=== PATIENT | female | born 1990 | race African-American/Black ===

== ENCOUNTER 2017-06-21 10:32 | Emergency (ER) | payer MEDICAID ==
[~2017-06-21] VITALS: Ht 154.9 cm; Wt 58.5 kg
[~2017-06-21 10:32] MED LIST: NKM; PRENATABS FA T1 EACH PO; REGLAN10 MG ORAL
[2017-06-21 11:14] LABS: BASOPHILS % (AUTO) 1.1 % (0.0-2.0); EOSINOPHILS % (AUTO) 3.4 % (0.0-3.0); LYMPHOCYTES % (AUTO) 41.4 % (20.0-45.0); MEAN CORPUSCULAR HEMOGLOBIN 29.4 PG (27.0-31.0); MEAN CORPUSCULAR VOLUME 86 FL (80-99); MEAN PLATELET VOLUME 5.8 FL (6.5-10.1); MONOCYTES % (AUTO) 12.3 % (1.0-10.0); NEUTROPHILS % (AUTO) 41.8 % (45.0-75.0); PLATELET COUNT 315 K/UL (150-450); RED BLOOD COUNT 4.51 M/UL (4.20-5.40); RED CELL DISTRIBUTION WIDTH 13.1 % (11.6-14.8); WHITE BLOOD COUNT 4.7 K/UL (4.8-10.8)
[2017-06-21 11:15] LABS: APPEARANCE,URINE CLEAR; KETONES,URINE NEGATIVE (NEGATIVE); LEUKOCYTE ESTERASE ,URINE NEGATIVE (NEGATIVE); NITRITE,URINE NEGATIVE (NEGATIVE); PH,URINE 7 (4.5-8.0); PROTEIN,URINE NEGATIVE (NEGATIVE); UROBILINOGEN,URINE NORMAL MG/DL (0.0-1.0)
[2017-06-21] MEDS ORDERED: Morphine Sulfate 4mg/ml Inj IVP ONE (11:15)
[2017-06-21 11:35] LABS: ALANINE AMINOTRANSFERASE 17 U/L (12-78); ALBUMIN/GLOBULIN RATIO 1.3 (1.0-2.7); ANION GAP 5 mmol/L (5-15); ASPARTATE AMINO TRANSFERASE 14 U/L (15-37); CALCIUM 8.9 MG/DL (8.5-10.1); CARBON DIOXIDE 28 MMOL/L (21-32); CHLORIDE 103 MMOL/L (98-107); CREATININE 0.7 MG/DL (0.55-1.30); GLOMERULAR FILTRATION RATE > 60 mL/min (>60); LIPASE 139 U/L (73-393); POTASSIUM 3.7 MMOL/L (3.5-5.1); SODIUM 136 MMOL/L (136-145); TOTAL PROTEIN 7.2 G/DL (6.4-8.2)
[2017-06-21] MEDS ORDERED: DiphenhydrAMINE 50mg/ml Inj ONE (11:35)
[2017-06-21] MEDS ORDERED: DiphenhydrAMINE 50mg/ml Inj IVP ONE (11:45)
[2017-06-21] MEDS ORDERED: ACETAMINOPHEN-1 EAC1 ORAL (12:53)
[2017-06-21] MEDS ORDERED: PRENATABS FA T1 EACH PO (12:53)
[2017-06-21] MEDS ORDERED: ZOFRAN ODT4 MG ORAL (12:53)
[2017-06-21 13:29] VITALS: BP 110/63
--- NOTE | 2017-06-21 13:45 | Diagnostic Imaging Report ---
Indication: Abdominal pain, positive test, right-sided pelvic pain, history of 2 ectopic pregnancies Technique: Transabdominal and transvaginal images Comparison: 07/31/2016 Findings: Uterus is retroverted and retroflexed. Images 7.4 cm length by 4.9 cm AP. Within the endometrium, there is a small fluid collection with an echogenic rim, probably but not definitively the gestational sac. There is questionably a tiny pole. [place]-rump length and sac diameter are both too small to calculate an estimated gestational age. No heart activity demonstrated. No yolk sac. No myometrial abnormality. Right ovary measures 3.1 cm in length. Left ovary measures 3.4 cm in length. Prominent veins are seen in the left adnexal region. No adnexal mass demonstrated. Free fluid is seen in the cul-de-sac. Impression: Small endometrial fluid collection, likely but not definitively a gestational sac. No heart activity demonstrated. Ectopic therefore not completely excludable. Differential considerations include very early , nonviable , pseudo-gestational sac of ectopic . Recommend correlation with serial beta hCGs, followup sonography is indicated Free cul-de-sac fluid, likely physiologic No adnexal mass
--- NOTE | 2017-06-21 14:44 | Emergency Room Report ---
History of Present Illness General Chief Complaint: Complications Source: Patient Present Illness HPI 27-year-old female presents to ED complaining of abdominal pain for the last 3 days. Patient states she is approximately 5 weeks . Has not yet received care. States she is concerned she's had 2 prior ectopic pregnancies. Pain is 7/10, sharp, nonradiating. Denies any vaginal bleeding. Denies any nausea or vomiting. No other aggravating relieving factors. Denies any other associated symptoms Allergies: Coded Allergies: No Known Allergies (Unverified , 07/31/16) Patient History Past Medical History: none Past Surgical History: none Pertinent Family History: none Social History: Denies: smoking, alcohol use, drug use Last Menstrual Period: 5 weeks ago Now: Yes : 7 Para: 1 Immunizations: UTD Reviewed Nursing Documentation: PMH: Agreed, PSxH: Agreed Nursing Documentation-PMH Past Medical History: No History, Except For Hx Cardiac Problems: No - ectopic Review of Systems All Other Systems: negative except mentioned in HPI Physical Exam Vital Signs Date Time Temp Pulse Resp B/P (MAP) Pulse Ox O2 Delivery O2 Flow Rate FiO2 06/21/17 10:39 98.4 98 16 117/70 99 Room Air Sp02 EP Interpretation: reviewed, normal General Appearance: no apparent distress, alert, GCS 15, non-toxic Head: normocephalic, atraumatic Eyes: bilateral eye normal inspection, bilateral eye PERRL ENT: hearing grossly normal, normal pharynx, no angioedema, normal voice Neck: full range of motion, supple/symm/no masses Respiratory: chest non-tender, lungs clear, normal breath sounds, speaking full sentences Cardiovascular #1: regular rate, rhythm, no edema Cardiovascular #2: 2+ carotid (R), 2+ carotid (L), 2+ radial (R), 2+ radial (L) , 2+ dorsalis pedis (R), 2+ dorsalis pedis (L) Gastrointestinal: normal bowel sounds, soft, non-distended, no guarding, no rebound, tenderness Rectal: deferred Genitourinary: normal inspection, no CVA tenderness Musculoskeletal: back normal, gait/station normal, normal range of motion, non- tender Neurologic: alert, oriented x3, responsive, motor strength/tone normal, sensory intact, speech normal Psychiatric: judgement/insight normal, memory normal, mood/affect normal, no suicidal/homicidal ideation Reflexes: 3+ bicep (R), 3+ bicep (L), 3+ tricep (R), 3+ tricep (L), 3+ knee (R) , 3+ knee (L) Skin: normal color, no rash, warm/dry, well hydrated Lymphatic: no adenopathy Medical Decision Making Diagnostic Impression: Primary Impression: Threatened ER Course Hospital Course 27-year-old female presents to ED complaining of lower abdominal pain with N/V. + Differential diagnoses include: gastrits, gastroenterits, ectopic , ovarian torsion/cyst, UTI Clinical course Patient placed on stretcher in ED. After initial history and physical I ordered labs, IV fluids and Zofran and pain meds, ultrasound. Labs-no leukocytosis, electrolytes okay, beta hCG greater than 3000, UA unremarkable Pelvic ultrasound- ? pole, no HR detected. no adenxal tenderness I discussed findings with patient. Recommended serial sonogram and followup with [employer] Diagnosis - threatened Stable and discharged to home with Rx tylenol #3 and vitamins. Followup with PMD/[employer]. Return to ED if symptoms recur or worsen Labs Test 06/21/17 11:00 White Blood Count 4.7 K/UL (4.8-10.8) Red Blood Count 4.51 M/UL (4.20-5.40) Hemoglobin 13.2 G/DL (12.0-16.0) Hematocrit 39.0 % (37.0-47.0) Mean Corpuscular Volume 86 FL (80-99) Mean Corpuscular Hemoglobin 29.4 PG (27.0-31.0) Mean Corpuscular Hemoglobin Concent 34.0 G/DL (32.0-36.0) Red Cell Distribution Width 13.1 % (11.6-14.8) Platelet Count 315 K/UL (150-450) Mean Platelet Volume 5.8 FL (6.5-10.1) Neutrophils (%) (Auto) 41.8 % (45.0-75.0) Lymphocytes (%) (Auto) 41.4 % (20.0-45.0) Monocytes (%) (Auto) 12.3 % (1.0-10.0) Eosinophils (%) (Auto) 3.4 % (0.0-3.0) Basophils (%) (Auto) 1.1 % (0.0-2.0) Urine Color Pale yellow Urine Appearance Clear Urine pH 7 (4.5-8.0) Urine Specific [place] 1.010 (1.005-1.035) Urine Protein Negative (NEGATIVE) Urine Glucose (UA) Negative (NEGATIVE) Urine Ketones Negative (NEGATIVE) Urine Occult Blood Negative (NEGATIVE) Urine Nitrite Negative (NEGATIVE) Urine Bilirubin Negative (NEGATIVE) Urine Urobilinogen Normal MG/DL (0.0-1.0) Urine Leukocyte Esterase Negative (NEGATIVE) Urine HCG, Qualitative Positive Sodium Level 136 MMOL/L (136-145) Potassium Level 3.7 MMOL/L (3.5-5.1) Chloride Level 103 MMOL/L (98-107) Carbon Dioxide Level 28 MMOL/L (21-32) Anion Gap 5 mmol/L (5-15) Blood Urea Nitrogen 6 mg/dL (7-18) Creatinine 0.7 MG/DL (0.55-1.30) Estimat Glomerular Filtration Rate > 60 mL/min (>60) Glucose Level 94 MG/DL (74-106) Calcium Level 8.9 MG/DL (8.5-10.1) Total Bilirubin 0.7 MG/DL (0.2-1.0) Aspartate Amino Transf (AST/SGOT) 14 U/L (15-37) Alanine Aminotransferase (ALT/SGPT) 17 U/L (12-78) Alkaline Phosphatase 34 U/L (46-116) Total Protein 7.2 G/DL (6.4-8.2) Albumin 4.0 G/DL (3.4-5.0) Globulin 3.2 g/dL Albumin/Globulin Ratio 1.3 (1.0-2.7) Lipase 139 U/L (73-393) Human Chorionic Gonadotropin, Quant 3052 mIU/mL (1-6) CT/MRI/US Diagnostic Results CT/MRI/US Diagnostic Results : Imaging Test Ordered: OB US Impression small endometrial fluid collection. ? pole. no HR detected. Last Vital Signs Date Time Temp Pulse Resp B/P (MAP) Pulse Ox O2 Delivery O2 Flow Rate FiO2 06/21/17 13:29 98.4 69 16 110/63 100 Room Air Status: improved Disposition: HOME, SELF-CARE Condition: Stable Scripts Ondansetron Odt* (ZOFRAN ODT*) 4 Mg Tab.rapdis 4 MG ORAL Q6H Y for Nausea & Vomiting, #30 TAB 0 Refills Prov: NARGIS WILKINSON M.D. 06/21/17 Acetaminophen With Codeine (T#3) (TYLENOL #3 TAB*) Y Tab 1 TAB ORAL Q8H Y for For Pain, #20 TAB Prov: NARGIS WILKINSON M.D. 06/21/17 Vit No.78/Iron/Fa (PRENATABS FA TABLET) 1 Each Tablet 1 EACH PO DAILY for 30 Days, #30 TAB Prov: NARGIS WILKINSON M.D. 06/21/17 Referrals: NOT CHOSEN IPA/,REFERRING Patient Instructions: Threatened Miscarriage NARGIS WILKINSON M.D. Jun 21, 2017 14:44
== END 2017-06-21 13:34 | disposition home or self-care (01) ==
LOC: EMR 11:47
DX: O20.0 Threatened abortion (principal); Z3A.01 Less than 8 weeks gestation of pregnancy
CPT/HCPCS: 36415; 76801; 76830; 80053; 81003; 81025; 83690; 84702; 85025; 96361; 96374; 96375; 99284; J1200; J2270

== ENCOUNTER 2017-11-14 17:37 | Emergency (ER) | payer MEDICAID ==
[~2017-11-14] VITALS: Ht 154.9 cm; Wt 68.0 kg
[~2017-11-14 17:37] MED LIST changes: +ACETAMINOPHEN-1 EAC1 ORAL; +ZOFRAN ODT4 MG ORAL
--- NOTE | 2017-11-14 18:11 | Emergency Room Report ---
History of Present Illness General Chief Complaint: Upper Respiratory Illness Source: Patient Present Illness HPI 27-year-old female presents to the emergency department complaining of cough, rib cage pain exacerbated upon coughing, 7 out of 10 in severity abdominal pain in addition to decreased movement. Patient reports that she is 26 weeks . She has had history of 2 stillborns. And one normal vaginal delivery. Patient denies vaginal discharge, bleeding or contractions. Patient states that typically her baby is very active however today she only thinks she felt movement one time this morning which is not normal for her. Patient denies fevers or chills she reports her coughing sensation has been persistent and lasting 2-3 days. Reports history of asthma the child which she believes she grew out of. Denies CP, Palpitations, LOC, AMS, dizziness, Changes in Vision , Sensation, paresthesias, or a sudden severe headache. Allergies: Coded Allergies: No Known Allergies (Unverified , 07/31/16) Patient History Past Medical History: see triage record Past Surgical History: none Pertinent Family History: none Now: Yes - 26 weeks : 7 Para: 1 Reviewed Nursing Documentation: PMH: Agreed; PSxH: Agreed Nursing Documentation-PMH Hx Cardiac Problems: No - Two ectopic pregnancies, 1 still- Hx Asthma: Yes Review of Systems All Other Systems: negative except mentioned in HPI Physical Exam Vital Signs Date Time Temp Pulse Resp B/P (MAP) Pulse Ox O2 Delivery O2 Flow Rate FiO2 11/14/17 17:44 97.7 97 18 118/55 97 Room Air 97.7 Sp02 EP Interpretation: reviewed, normal General Appearance: no apparent distress, alert, GCS 15, non-toxic Head: normocephalic, atraumatic ENT: hearing grossly normal, normal voice Neck: full range of motion Respiratory: lungs clear, normal breath sounds, no rhonchi, no respiratory distress, no accessory muscle use, no wheezing, speaking full sentences, other - TTP to the anterior chest and lateral ribcage. Cardiovascular #1: regular rate, rhythm, no edema Gastrointestinal: normal bowel sounds, non tender, soft, other - pt. is Gravid. Some tenderness to the epigastric area no appreciable tenderness in the lower portions of the abdomen. Rectal: deferred Genitourinary: deferred Musculoskeletal: back normal, gait/station normal, normal range of motion, non- tender Neurologic: alert, oriented x3, responsive, motor strength/tone normal, sensory intact, normal gait, speech normal, grossly normal Psychiatric: judgement/insight normal Skin: normal color, no rash, warm/dry, well hydrated Medical Decision Making PA Attestation Dr. aiken is my supervising Physician whom patient management has been discussed with. Diagnostic Impression: Primary Impression: Upper respiratory symptom Additional Impressions: Threatened Decreased movement during Qualified Codes: O36.8190 - Decreased movements, unspecified trimester, not applicable or unspecified ER Course 27-year-old female presents to the emergency department complaining of cough, rib cage pain exacerbated upon coughing, 7 out of 10 in severity abdominal pain in addition to decreased movement. Patient reports that she is 26 weeks . She has had history of 2 stillborns. And one normal vaginal delivery. Patient denies vaginal discharge, bleeding or contractions. Patient states that typically her baby is very active however today she only thinks she felt movement one time this morning which is not normal for her. Patient denies fevers or chills she reports her coughing sensation has been persistent and lasting 2-3 days. Reports history of asthma the child which she believes she grew out of. Denies CP, Palpitations, LOC, AMS, dizziness, Changes in Vision , Sensation, paresthesias, or a sudden severe headache. 27-year-old female presents to the emergency department complaining of cough, rib cage pain exacerbated upon coughing, 7 out of 10 in severity abdominal pain in addition to decreased movement. Patient reports that she is 26 weeks . She has had history of 2 stillborns. And one normal vaginal delivery. Patient denies vaginal discharge, bleeding or contractions. Patient states that typically her baby is very active however today she only thinks she felt movement one time this morning which is not normal for her. Patient denies fevers or chills she reports her coughing sensation has been persistent and lasting 2-3 days. Reports history of asthma the child which she believes she grew out of. Denies CP, Palpitations, LOC, AMS, dizziness, Changes in Vision , Sensation, paresthesias, or a sudden severe headache. Ddx considered but are not limited to threatened , demise, gastritis, URI, impending delivery just to name a few Vital signs: are WNL, pt. is afebrile H&PE are most consistent with Lung sounds are clear bilaterally some tenderness to the epigastric area no appreciable tenderness in the lower portions of the abdomen. ED INTERVENTIONS: -Discussed with patient that ultimately she will need to be transferred to an L& D hospital and have FST monitoring performed. Discussed with patient that we would facilitate transport via ambulance. After discussion with her and her boyfriend they decided that they would take personal transportation over to appropriate hospital. Pt. did not want to have further evaluation of her symptoms here as she did not want to delay having the monitoring performed. Pt. states she will have her URI symptoms evaluated at alternate facility as well. Discussed with patient and risks of personal transport and that she would need to leave AMA. DISPOSITION: - At this time the patient is requesting to leave AGAINST MEDICAL ADVICE and decline further evaluation and Transfer to L&D Hospital. I believe that this patient has the capacity to make decisions on Her own. I discussed with the patient the risks of leaving AMA. Some of these risks include delay in diagnosis and treatment, Impending delivery, as well as worsening of symptoms, organ damage, and permanent disability or even . After discussing these risks with the patient. She continues to express Her want to leave AGAINST MEDICAL ADVICE. I encouraged the patient to return at any time, and that she will be welcome here in the emergency department to continue medical management and appropriate transfer/ambulance transport. Last Vital Signs Date Time Temp Pulse Resp B/P (MAP) Pulse Ox O2 Delivery O2 Flow Rate FiO2 11/14/17 17:44 97.7 97 18 118/55 97 Room Air 97.7 Disposition: AGAINST MEDICAL ADVICE Condition: Unknown Patient Instructions: Monitoring Overview, Form - Movement Counts Additional Instructions: Return sooner to ED if new symptoms occur, or current symptoms become worse. Pt. to Leave AMA and provide her own personal transport to an L&D facility. D/ w Pt. Risks of AMA. You are encouraged to return at any time, and will be welcome here in the emergency department to continue medical management or facilitate your transport. - Please note that this Emergency Department Report was dictated using [employer] technology software, occasionally this can lead to erroneous entry secondary to interpretation by the dictation equipment. Rani Mcgowan Nov 14, 2017 18:11
[2017-11-14 18:18] VITALS: BP 118/55
[2017-11-14 18:20] VITALS: BP 118/55
== END 2017-11-14 18:20 | disposition left against medical advice (07) ==
LOC: EMR 18:16
DX: O26.892 Other specified pregnancy related conditions, second trimester (principal); Z3A.26 26 weeks gestation of pregnancy; R05 Cough; O20.0 Threatened abortion; O36.8120 Decreased fetal movements, second trimester, not applicable or unspecified; J45.909 Unspecified asthma, uncomplicated
CPT/HCPCS: 99284